=== PATIENT | female | born 1965 | race Caucasian/White ===

== ENCOUNTER 2018-02-17 21:55 | Inpatient (IN) | payer OTHER ==
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
[2018-02-17] MEDS ORDERED: P-EPHED 60MG/TRIPROLIDI 2.5MG TABLET PO PRN (22:45)
[2018-02-17] MEDS ORDERED: guaiFENesin/D-METHORPHAN HB 10 ML UNIT-DOSE CUPS PO PRN (22:45)
[2018-02-17] MEDS ORDERED: chlordiazePOXIDE HCL 25 MG CAPSULE PO ONE ×2 (22:45→23:30)
[2018-02-17] MEDS ORDERED: chlordiazePOXIDE HCL 25 MG CAPSULE PO PRN (22:45)
[2018-02-17] MEDS ORDERED: ACETAMINOPHEN 325 MG TABLET (FP) PO PRN (22:45)
[2018-02-17] MEDS ORDERED: MAGNESIUM CITRATE 300 ML BOTTLE PO PRN (22:45)
[2018-02-17] MEDS ORDERED: IBUPROFEN 400 MG TABLET (FP) PO PRN (22:45)
[2018-02-17] MEDS ORDERED: LOPERAMIDE HCL 2 MG CAPSULE PO PRN (22:45)
[2018-02-17] MEDS ORDERED: MENTHOL/PHENOL 1 EACH UD MM PRN (22:45)
[2018-02-17] MEDS ORDERED: MAGNESIUM HYDROX 2400MG/30ML ORAL SUSPENSION 30 ML CUP PO PRN (22:45)
[2018-02-17] MEDS ORDERED: NICOTINE POLACRILEX 2 MG GUM BC PRN (22:45)
[2018-02-17] MEDS ORDERED: MAG HYDROX/AL HYDROX/SIMETH 30 ML UNIT-DOSE CUP PO PRN (22:45)
[2018-02-17 22:47] VITALS: BMI 29.5
[2018-02-18] MEDS ORDERED: chlordiazePOXIDE HCL 25 MG CAPSULE PO PRN (00:41)
[2018-02-18] MEDS: chlordiazePOXIDE HCL 25 MG CAPSULE PO SCH ×16 (01:36→22:17)
[2018-02-18] MEDS ORDERED: chlordiazePOXIDE HCL 25 MG CAPSULE PO SCH (05:00)
--- NOTE | 2018-02-18 08:06 | CONSULT ---
[facility] Psychiatric Consult - Data Date of interview: 02/18/18 Admission source: [facility] Identifying data: This is 52 years old female, single, homeless, on PA, with history of Bipolar Disorder, history of opsychiatric hospitalizations, with history of of Crack, Alcohol, Nicotine dependence, is here reportinf Alcohol withdrawal symptoms and seeking for detox. Substance Abuse History: Smoking history: Current every day smoker. Have you smoked in the past 12 months: Yes. Aproximately how many cigarettes per day: 20. Hx Chewing Tobacco Use: No. Initiated information on smoking cessation: Yes. 'Breaking Loose' booklet given: 02/17/18. - Substance & Tx. History. Hx Alcohol Use: Yes. Substance Use Type: Alcohol, Cocaine. Hx Substance Use Treatment: Yes ([facility] 2010). - Substances Abused. Alcohol. Route: Oral. Frequency: Daily. Amount used: LIQUIOR 1 pint + 4 beers x 24 oz. Age of first use: 16. Date of Last Use: 02/17/18. Crack. Route: Smoking. Frequency: Daily. Amount used: $50. Age of first use: 18. Date of Last Use: 02/17/18 Medical History: Asthma, LBP Psychiatric History: Patient reports to carry Bipolar Disorder with most recent psychiatric hospitalization on [id number] at [facility] for safety, denies suicidal, homiicidal history, reports taking prior to admission: Abilify 15mg poqd,. Cogentin 2mg poqd Physical/Sexual Abuse/Trauma History: Denies Additional Comment: Abilify 15mg poqd,. Cogentin 2mg poqd Mental Status Exam - Mental Status Exam Alert and Oriented to: Person Cognitive Function: Fair Patient Appearance: Unkempt Mood: Sad Affect: Mood Congruent Patient Behavior: Cooperative Speech Pattern: Delayed Voice Loudness: Mildly Soft/Quiet Thought Process: Circumstantial Thought Disorder: Being Controlled Hallucinations: Denies Suicidal Ideation: Denies Homicidal Ideation: Denies Insight/Judgement: Fair Sleep: Difficulty falling asleep Appetite: Fair Muscle strength/Tone: Mild Hypotonicity Gait/Station: Shuffling Additional Comments: Abilify 15mg poqd,. Cogentin 2mg poqd Psychiatric Findings - Problem List ([place] 1, 2,3) (1) Cocaine dependence Current Visit: Yes Status: Acute Qualifiers: Substance use status: uncomplicated Qualified Code(s): F14.20 - Cocaine dependence, uncomplicated (2) Nicotine dependence Current Visit: Yes Status: Acute Qualifiers: Nicotine product type: cigarettes (3) Cocaine dependence Current Visit: Yes Status: Acute (4) Alcohol dependence Current Visit: Yes Status: Acute (5) Bipolar disorder Current Visit: Yes Status: Acute (6) Drug-induced mood disorder Current Visit: Yes Status: Acute - Initial Treatment Plan Initial Treatment Plan: Abilify 15mg poqd,. Cogentin 2mg poqd
[2018-02-18 10:09] LABS: HEMATOCRIT 42.7 % (32.4-45.2); HEMOGLOBIN 14.6 GM/dL (10.7-15.3); MCH 31.7 pg (25.7-33.7); MCHC 34.2 g/dl (32.0-36.0); MEAN CELL VOLUME 92.9 fl (80-96); MEAN PLT VOLUME 9.3 fl (7.5-11.1); PLATELET COUNT 247 K/MM3 (134-434); RDW 13.5 % (11.6-15.6); WHITE BLOOD COUNT 6.8 K/mm3 (4.0-10.0)
[2018-02-18 10:10] LABS: CHLORIDE 108 mmol/L (98-107); POTASSIUM 4.1 mmol/L (3.5-5.1); SODIUM 143 mmol/L (136-145)
[2018-02-18] MEDS: ARIPiprazole 15 MG TABLET PO SCH (10:31)
[2018-02-18] MEDS: BENZTROPINE MESYLATE 1 MG TABLET (FP) PO SCH (10:31)
[2018-02-18] MEDS: PRENATAL VITAMINS W/ FOLIC ACID TABLET (FP) PO SCH (10:32)
[2018-02-18] MEDS: NICOTINE 14 MG/24 HOURS TOPICAL PATCH TD SCH (10:33)
[2018-02-18 10:41] LABS: ALBUMIN 3.5 g/dl (3.4-5.0); ALK PHOS 79 U/L (45-117); ANION GAP 7 (8-16); BILIRUBIN,TOTAL 0.5 mg/dL (0.2-1.0); BLOOD UREA NITROGEN 12 mg/dL (7-18); CO2 28 mmol/L (21-32); CREATININE 0.9 mg/dL (0.55-1.02); GLUCOSE,RANDOM 89 mg/dL (74-106); SGOT/AST 17 U/L (15-37); SGPT/ALT 19 U/L (12-78); TOT PROT 6.4 g/dl (6.4-8.2)
--- NOTE | 2018-02-18 10:43 | PN ---
S CIWA - CIWA Score Nausea/Vomitin-Mild Nausea/No Vomiting Muscle Tremors: 4-Moderate,w/Arms Extend Anxiety: 3 Agitation: 3 Paroxysmal Sweats: 1-Minimal Palms Moist Orientation: 0-Oriented Tacttile Disturbances: 0-None Auditory Disturbances: 0-None Visual Disturbances: 0-None Headache: 0-None Present CIWA-Ar Total Score: 12 BHS Progress Note (SOAP) Subjective: tremor trouble sleep at night sweat restlessness Objective: 02/18/18 10:43 Vital Signs Temperature 98.2 F 02/18/18 09:07 Pulse Rate 80 02/18/18 09:07 Respiratory Rate 16 02/18/18 09:07 Blood Pressure 108/62 02/18/18 09:07 O2 Sat by Pulse Oximetry (%) Laboratory Last Values WBC 6.8 K/mm3 (4.0-10.0) 02/18/18 07:30 RBC 4.60 M/mm3 (3.60-5.2) 02/18/18 07:30 Hgb 14.6 GM/dL (10.7-15.3) 02/18/18 07:30 Hct 42.7 % (32.4-45.2) 02/18/18 07:30 MCV 92.9 fl (80-96) 02/18/18 07:30 MCH 31.7 pg (25.7-33.7) 02/18/18 07:30 MCHC 34.2 g/dl (32.0-36.0) 02/18/18 07:30 RDW 13.5 % (11.6-15.6) 02/18/18 07:30 Plt Count 247 K/MM3 (134-434) 02/18/18 07:30 MPV 9.3 fl (7.5-11.1) 02/18/18 07:30 Sodium 143 mmol/L (136-145) 02/18/18 07:30 Potassium 4.1 mmol/L (3.5-5.1) 02/18/18 07:30 Chloride 108 mmol/L (98-107) H 02/18/18 07:30 lab noted Assessment: 02/18/18 10:44 withdrawal sx Plan: continue detox
--- NOTE | 2018-02-18 10:47 | EKG ---
Test Reason : Blood Pressure : / mmHG Vent. Rate : 083 BPM Atrial Rate : 083 BPM P-R Int : 120 ms QRS Dur : 074 ms QT Int : 390 ms P-R-T Axes : 072 076 054 degrees QTc Int : 458 ms NORMAL SINUS RHYTHM NORMAL ECG NO PREVIOUS ECGS AVAILABLE Confirmed by NETTE PAULINO, KARIN ([id number]) on 02/18/2018 10:46:31 AM Referred By: Confirmed By:KARIN PERDUE MD
[2018-02-18] MEDS: ARTIFICIAL TEARS (POLYVINYL ALCOHOL 1.4%) OPTH DROPS OS SCH ×2 (17:08→22:17)
[2018-02-18] MEDS: hydrOXYzine PAMOATE 50 MG CAPSULE (FP) PO PRN (18:09)
--- NOTE | 2018-02-18 18:21 | PN ---
[facility] Progress Note Note: Psychiatry Attending's note : Called to evaluate this patient.Issue : crisis intervention. Lab results in : patient is positive for HIV.Met with Ms Heart. She admits to being " surprised and saddened " by the news. Patient remains calm.Able to discuss the situation in clear terms. She understands the seriousness of her new condition.Aware of improvement of prognosis. She is reassured by the general knowledge that efficacious treatment strategies are now available. Continues to be future-oriented.Willing to address this new challenge with sadaf and courage. States that she will follow treatment guidelines to maintain health.Receptive to support and education. Mental status is stable.Ms Heart exhibits adequate control and remarkable strength in the face of this adversity. She indicates that she is motivated for the completion of detoxification treatment and the maintenance of sobriety. Patient is NOT a danger to self or others.Psychiatry-Liaison remains available for continuous support and guidance.
[2018-02-18] MEDS: THIAMINE HCL 100 MG TABLET (FP) PO SCH (22:18)
[2018-02-18] MEDS: MELATONIN 5 MG TABLETS PO PRN (22:18)
[2018-02-19] MEDS ORDERED: chlordiazePOXIDE 5 MG CAPSULE PO SCH (05:00)
[2018-02-19] MEDS: chlordiazePOXIDE HCL 25 MG CAPSULE PO SCH ×4 (06:25→22:18)
--- NOTE | 2018-02-19 09:57 | PN ---
S CIWA - CIWA Score Nausea/Vomitin-No Nausea/No Vomiting Muscle Tremors: 3 Anxiety: 3 Agitation: 2 Paroxysmal Sweats: 1-Minimal Palms Moist Orientation: 0-Oriented Tacttile Disturbances: 1-Very Mild Itch/Numbness Auditory Disturbances: 0-None Visual Disturbances: 0-None Headache: 1-Very Mild CIWA-Ar Total Score: 11 S Progress Note (SOAP) Subjective: sweat tremor restlessness irritable informed negative second hiv test result team of HIV specialist counselor medical provider and nurse will meet with the patient later today discuss sexual trasmitted disease prevention Objective: 02/19/18 09:57 Vital Signs Temperature 96.8 F L 02/19/18 09:34 Pulse Rate 75 02/19/18 09:34 Respiratory Rate 16 02/19/18 09:34 Blood Pressure 110/60 02/19/18 09:34 O2 Sat by Pulse Oximetry (%) Laboratory Last Values WBC 6.8 K/mm3 (4.0-10.0) 02/18/18 07:30 RBC 4.60 M/mm3 (3.60-5.2) 02/18/18 07:30 Hgb 14.6 GM/dL (10.7-15.3) 02/18/18 07:30 Hct 42.7 % (32.4-45.2) 02/18/18 07:30 MCV 92.9 fl (80-96) 02/18/18 07:30 MCH 31.7 pg (25.7-33.7) 02/18/18 07:30 MCHC 34.2 g/dl (32.0-36.0) 02/18/18 07:30 RDW 13.5 % (11.6-15.6) 02/18/18 07:30 Plt Count 247 K/MM3 (134-434) 02/18/18 07:30 MPV 9.3 fl (7.5-11.1) 02/18/18 07:30 Sodium 143 mmol/L (136-145) 02/18/18 07:30 Potassium 4.1 mmol/L (3.5-5.1) 02/18/18 07:30 Chloride 108 mmol/L (98-107) H 02/18/18 07:30 Carbon Dioxide 28 mmol/L (21-32) 02/18/18 07:30 Anion Gap 7 (8-16) L 02/18/18 07:30 BUN 12 mg/dL (7-18) 02/18/18 07:30 Creatinine 0.9 mg/dL (0.55-1.02) 02/18/18 07:30 Creat Clearance w eGFR > 60 (>60) 02/18/18 07:30 Random Glucose 89 mg/dL (74-106) 02/18/18 07:30 Calcium 9.0 mg/dL (8.5-10.1) 02/18/18 07:30 Total Bilirubin 0.5 mg/dL (0.2-1.0) 02/18/18 07:30 AST 17 U/L (15-37) 02/18/18 07:30 ALT 19 U/L (12-78) 02/18/18 07:30 Alkaline Phosphatase 79 U/L (45-117) 02/18/18 07:30 Total Protein 6.4 g/dl (6.4-8.2) 02/18/18 07:30 Albumin 3.5 g/dl (3.4-5.0) 02/18/18 07:30 HIV 1&2 Ag/Ab, 4th Gen Non reactive (Non Reactive) 02/18/18 07:30 HIV Note 02/18/18 07:30 HIV 1&2 Antibody Screen Preliminary positive 02/18/18 07:30 HIV P24 Antigen Negative 02/18/18 07:30 lab noted patient informed Assessment: 02/19/18 09:57 withdrawal sx Plan: continue detox safe sex
[2018-02-19] MEDS: PRENATAL VITAMINS W/ FOLIC ACID TABLET (FP) PO SCH (10:29)
[2018-02-19] MEDS: NICOTINE 14 MG/24 HOURS TOPICAL PATCH TD SCH (10:29)
[2018-02-19] MEDS: ARTIFICIAL TEARS (POLYVINYL ALCOHOL 1.4%) OPTH DROPS OS SCH ×2 (10:29→14:03)
[2018-02-19] MEDS: BENZTROPINE MESYLATE 1 MG TABLET (FP) PO SCH (10:29)
[2018-02-19] MEDS: ARIPiprazole 15 MG TABLET PO SCH (10:29)
[2018-02-19 15:28] LABS: URINE APPEARANCE CLEAR; URINE BILIRUBIN NEGATIVE (<2.0 mg/dL); URINE COLOR YELLOW; URINE GLUCOSE (UA) NEGATIVE (NEGATIVE); URINE KETONE NEGATIVE (NEGATIVE); URINE LEUK ESTERASE NEGATIVE (NEGATIVE); URINE NITRITE NEGATIVE (NEGATIVE); URINE PROTEIN NEGATIVE (NEGATIVE); URINE UROBILINOGEN NEGATIVE mg/dL (0.2-1.0)
[2018-02-19] MEDS: TOBRAMYCIN 0.3% OPHTH SOLN 5 ML BOTTLE OS SCH ×2 (17:38→22:18)
[2018-02-19] MEDS ORDERED: TOBRAMYCIN 0.3% OPHTH SOLN 5 ML BOTTLE OS SCH (22:00)
[2018-02-19] MEDS: THIAMINE HCL 100 MG TABLET (FP) PO SCH (22:17)
[2018-02-19] MEDS: MELATONIN 5 MG TABLETS PO PRN (22:18)
[2018-02-20] MEDS ORDERED: chlordiazePOXIDE HCL 10 MG CAPSULE PO SCH (05:00)
[2018-02-20] MEDS: chlordiazePOXIDE 5 MG CAPSULE PO SCH ×4 (05:53→22:20)
--- NOTE | 2018-02-20 09:13 | PN ---
S Progress Note (SOAP) Subjective: interrupted sleep, sweats, tired Objective: 02/20/18 09:11 Vital Signs Temperature 96.6 F L 02/20/18 06:26 Pulse Rate 72 02/20/18 06:30 Respiratory Rate 18 02/20/18 06:30 Blood Pressure 147/90 02/20/18 06:26 O2 Sat by Pulse Oximetry (%) Laboratory Tests 02/18/18 02/18/18 02/18/18 07:30 07:30 07:30 WBC 6.8 RBC 4.60 Hgb 14.6 Hct 42.7 MCV 92.9 MCH 31.7 MCHC 34.2 RDW 13.5 Plt Count 247 MPV 9.3 Sodium 143 Potassium 4.1 Chloride 108 H Carbon Dioxide 28 Anion Gap 7 L BUN 12 Creatinine 0.9 Creat Clearance w eGFR > 60 Random Glucose 89 Calcium 9.0 Total Bilirubin 0.5 AST 17 ALT 19 Alkaline Phosphatase 79 Total Protein 6.4 Albumin 3.5 Urine Color Urine Appearance Urine pH Ur Specific [place] Urine Protein Urine Glucose (UA) Urine Ketones Urine Blood Urine Nitrite Urine Bilirubin Urine Urobilinogen Ur Leukocyte Esterase RPR Titer HIV 1&2 Ag/Ab, 4th Gen HIV Note HIV 1&2 Antibody Screen Preliminary positive HIV P24 Antigen Negative 02/18/18 02/18/18 02/18/18 07:30 07:30 10:50 WBC RBC Hgb Hct MCV MCH MCHC RDW Plt Count MPV Sodium Potassium Chloride Carbon Dioxide Anion Gap BUN Creatinine Creat Clearance w eGFR Random Glucose Calcium Total Bilirubin AST ALT Alkaline Phosphatase Total Protein Albumin Urine Color Yellow Urine Appearance Clear Urine pH 6.0 Ur Specific [place] 1.015 Urine Protein Negative Urine Glucose (UA) Negative Urine Ketones Negative Urine Blood Negative Urine Nitrite Negative Urine Bilirubin Negative Urine Urobilinogen Negative Ur Leukocyte Esterase Negative RPR Titer Nonreactive HIV 1&2 Ag/Ab, 4th Gen Non reactive HIV Note HIV 1&2 Antibody Screen HIV P24 Antigen pt aox3 lying in bed in nad cooperative Assessment: 02/20/18 09:12 withdrawal sx's Plan: cont present detox increase fluids d/c in am
[2018-02-20] MEDS: ARIPiprazole 15 MG TABLET PO SCH (10:16)
[2018-02-20] MEDS: PRENATAL VITAMINS W/ FOLIC ACID TABLET (FP) PO SCH (10:16)
[2018-02-20] MEDS: BENZTROPINE MESYLATE 1 MG TABLET (FP) PO SCH (10:16)
[2018-02-20] MEDS: NICOTINE 14 MG/24 HOURS TOPICAL PATCH TD SCH (10:17)
[2018-02-20] MEDS: ARTIFICIAL TEARS (POLYVINYL ALCOHOL 1.4%) OPTH DROPS OS SCH (10:18)
[2018-02-20] MEDS: TOBRAMYCIN 0.3% OPHTH SOLN 5 ML BOTTLE OS SCH ×3 (12:29→22:19)
[2018-02-20] MEDS: hydrOXYzine PAMOATE 50 MG CAPSULE (FP) PO PRN (19:23)
[2018-02-20] MEDS: THIAMINE HCL 100 MG TABLET (FP) PO SCH (22:20)
[2018-02-20] MEDS: MELATONIN 5 MG TABLETS PO PRN (22:20)
[2018-02-21] MEDS: chlordiazePOXIDE HCL 10 MG CAPSULE PO SCH ×2 (06:07→10:38)
--- NOTE | 2018-02-21 09:12 | PN ---
S Progress Note (SOAP) Subjective: alert,no complaint Objective: 02/21/18 09:10 Vital Signs Temperature 96.8 F L 02/21/18 07:43 Pulse Rate 67 02/21/18 07:43 Respiratory Rate 16 02/21/18 07:43 Blood Pressure 109/74 02/21/18 07:43 O2 Sat by Pulse Oximetry (%) Assessment: 02/21/18 09:10 detox completed,no withdrawal symptom Plan: discharge today,follow up [facility] as arrangement
--- NOTE | 2018-02-21 09:36 | DS ---
[facility] Detox Discharge Summary Admission Date: 02/17/18 Discharge Date: 02/21/18 - History Present History: Alcohol Dependence, Cocaine Dependence Additional Comments: follow up with [facility] as arrangement Pertinent Past History: nicotine dependence bipolar disorder - Physical Exam Results Vital Signs: Vital Signs Temperature 96.8 F L 02/21/18 07:43 Pulse Rate 67 02/21/18 07:43 Respiratory Rate 16 02/21/18 07:43 Blood Pressure 109/74 02/21/18 07:43 O2 Sat by Pulse Oximetry (%) Pertinent Admission Physical Exam Findings: withdrawal symptom Vital Signs Temperature 96.8 F L 02/21/18 07:43 Pulse Rate 67 02/21/18 07:43 Respiratory Rate 16 02/21/18 07:43 Blood Pressure 109/74 02/21/18 07:43 O2 Sat by Pulse Oximetry (%) Laboratory Last Values WBC 6.8 K/mm3 (4.0-10.0) 02/18/18 07:30 RBC 4.60 M/mm3 (3.60-5.2) 02/18/18 07:30 Hgb 14.6 GM/dL (10.7-15.3) 02/18/18 07:30 Hct 42.7 % (32.4-45.2) 02/18/18 07:30 MCV 92.9 fl (80-96) 02/18/18 07:30 MCH 31.7 pg (25.7-33.7) 02/18/18 07:30 MCHC 34.2 g/dl (32.0-36.0) 02/18/18 07:30 RDW 13.5 % (11.6-15.6) 02/18/18 07:30 Plt Count 247 K/MM3 (134-434) 02/18/18 07:30 MPV 9.3 fl (7.5-11.1) 02/18/18 07:30 Sodium 143 mmol/L (136-145) 02/18/18 07:30 Potassium 4.1 mmol/L (3.5-5.1) 02/18/18 07:30 Chloride 108 mmol/L (98-107) H 02/18/18 07:30 Carbon Dioxide 28 mmol/L (21-32) 02/18/18 07:30 Anion Gap 7 (8-16) L 02/18/18 07:30 BUN 12 mg/dL (7-18) 02/18/18 07:30 Creatinine 0.9 mg/dL (0.55-1.02) 02/18/18 07:30 Creat Clearance w eGFR > 60 (>60) 02/18/18 07:30 Random Glucose 89 mg/dL (74-106) 02/18/18 07:30 Calcium 9.0 mg/dL (8.5-10.1) 02/18/18 07:30 Total Bilirubin 0.5 mg/dL (0.2-1.0) 02/18/18 07:30 AST 17 U/L (15-37) 02/18/18 07:30 ALT 19 U/L (12-78) 02/18/18 07:30 Alkaline Phosphatase 79 U/L (45-117) 02/18/18 07:30 Total Protein 6.4 g/dl (6.4-8.2) 02/18/18 07:30 Albumin 3.5 g/dl (3.4-5.0) 02/18/18 07:30 Urine Color Yellow 02/18/18 10:50 Urine Appearance Clear 02/18/18 10:50 Urine pH 6.0 (5.0-8.0) 02/18/18 10:50 Ur Specific [place] 1.015 (1.001-1.035) 02/18/18 10:50 Urine Protein Negative (NEGATIVE) 02/18/18 10:50 Urine Glucose (UA) Negative (NEGATIVE) 02/18/18 10:50 Urine Ketones Negative (NEGATIVE) 02/18/18 10:50 Urine Blood Negative (NEGATIVE) 02/18/18 10:50 Urine Nitrite Negative (NEGATIVE) 02/18/18 10:50 Urine Bilirubin Negative (<2.0 mg/dL) 02/18/18 10:50 Urine Urobilinogen Negative mg/dL (0.2-1.0) 02/18/18 10:50 Ur Leukocyte Esterase Negative (NEGATIVE) 02/18/18 10:50 RPR Titer Nonreactive (NONREACTIVE) 02/18/18 07:30 HIV 1&2 Ag/Ab, 4th Gen Non reactive (Non Reactive) 02/18/18 07:30 HIV Note 02/18/18 07:30 HIV 1&2 Antibody Screen Preliminary positive 02/18/18 07:30 HIV P24 Antigen Negative 02/18/18 07:30 - Treatment Hospital Course: Detox Protocol Followed, Detoxed Safely, Responded well, Discharged Condition Good, Rehab Referral Accepted Patient has Accepted a [facility] Referral [facility]: [facility] - Medication Discharge Medications: Ambulatory Orders Aripiprazole [Abilify -] 15 mg PO DAILY #30 tablet 02/18/18 Benztropine Mesylate [Cogentin -] 2 mg PO DAILY #30 tablet 02/18/18 Tobramycin 0.3% Ophth Soln [Tobrex Ophthalmic Solution -] 1 drop OS TID drops 02/20/18 - Diagnosis (1) Withdrawal symptoms, alcohol Current Visit: Yes Status: Acute Qualifiers: Complication of substance-induced condition: uncomplicated Qualified Code(s ): F10.230 - Alcohol dependence with withdrawal, uncomplicated (2) Asthma Current Visit: Yes Status: Chronic Qualifiers: Asthma severity: unspecified severity Asthma persistence: unspecified Asthma complication type: unspecified Qualified Code(s): J45.909 - Unspecified asthma, uncomplicated (3) Bipolar disorder Current Visit: Yes Status: Chronic (4) Cocaine dependence Current Visit: Yes Status: Chronic (5) Nicotine dependence Current Visit: Yes Status: Chronic Qualifiers: Nicotine product type: cigarettes - AMA Did Patient Leave Against Medical Advice: No
[2018-02-21 10:07] VITALS: BP 118/73; PULSE 74; TEMP 97.5
[2018-02-21] MEDS: PRENATAL VITAMINS W/ FOLIC ACID TABLET (FP) PO SCH (10:37)
[2018-02-21] MEDS: ARTIFICIAL TEARS (POLYVINYL ALCOHOL 1.4%) OPTH DROPS OS SCH (10:38)
[2018-02-21] MEDS: BENZTROPINE MESYLATE 1 MG TABLET (FP) PO SCH (10:38)
[2018-02-21] MEDS: NICOTINE 14 MG/24 HOURS TOPICAL PATCH TD SCH (10:38)
[2018-02-21] MEDS: ARIPiprazole 15 MG TABLET PO SCH (10:38)
[2018-02-21] MEDS: TOBRAMYCIN 0.3% OPHTH SOLN 5 ML BOTTLE OS SCH (13:05)
== END 2018-02-21 13:02 | disposition other institution (70) | DRG 897 ==
LOC: YASAS 21:55 → Y6N 23:07
PROVIDERS: ADMIT Surgery; ATTEND Surgery
PROC: HZ2ZZZZ Detoxification Services for Substance Abuse Treatment (ICD-10-PCS; principal; 2018-02-17)
DX: F10.230 Alcohol dependence with withdrawal, uncomplicated (principal); F14.20 Cocaine dependence, uncomplicated; F17.210 Nicotine dependence, cigarettes, uncomplicated; F31.9 Bipolar disorder, unspecified; F19.24 Other psychoactive substance dependence with psychoactive substance-induced mood disorder; J45.909 Unspecified asthma, uncomplicated; M54.5 Low back pain; Z87.42 Personal history of other diseases of the female genital tract
CPT/HCPCS: 36415; 80053; 81003; 85027; 86593; 87389; 93005; 93010

== ENCOUNTER 2018-02-21 14:14 | Inpatient (IN) | payer OTHER ==
[2018-02-21] MEDS ORDERED: MAGNESIUM HYDROX 2400MG/30ML ORAL SUSPENSION 30 ML CUP PO PRN (16:59)
[2018-02-21] MEDS ORDERED: MENTHOL/PHENOL 1 EACH UD MM PRN (16:59)
[2018-02-21] MEDS ORDERED: LOPERAMIDE HCL 2 MG CAPSULE PO PRN (16:59)
[2018-02-21] MEDS ORDERED: MAG HYDROX/AL HYDROX/SIMETH 30 ML UNIT-DOSE CUP PO PRN (16:59)
[2018-02-21] MEDS ORDERED: P-EPHED 60MG/TRIPROLIDI 2.5MG TABLET PO PRN (16:59)
[2018-02-21] MEDS ORDERED: ACETAMINOPHEN 325 MG TABLET (FP) PO PRN (16:59)
[2018-02-21] MEDS ORDERED: MAGNESIUM CITRATE 300 ML BOTTLE PO PRN (16:59)
[2018-02-21] MEDS ORDERED: guaiFENesin/D-METHORPHAN HB 10 ML UNIT-DOSE CUPS PO PRN (16:59)
[2018-02-21] MEDS ORDERED: IBUPROFEN 400 MG TABLET (FP) PO PRN (16:59)
--- NOTE | 2018-02-21 16:59 | HP ---
[facility] Rehab Assess/Revision - Admission History Admitted to Rehab from: [facility] [place] Date of Admission to Rehab: 02/21/18 - Findings Detox History & Physical reviewed: Yes Concur with findings: Yes Comments/Additional Findings: for rehab as protocol Inpatient Rehab Admission - Initial Determination Are CD services needed?: Yes Free of communicable disease: Yes Not in need of hospitalization: Yes - Rehab Admission Criteria Previous failed treatment: Yes Poor recovery environment: Yes Comorbidities: Yes Lacks judgement: No Patient is meeting Inpatient Rehab admission criteria:: Yes
[2018-02-21] MEDS ORDERED: PT OWN MED DRAWER 7, Y5N ONE (20:33)
[2018-02-21] MEDS: TOBRAMYCIN 0.3% OPHTH SOLN 5 ML BOTTLE OS SCH (21:13)
[2018-02-21] MEDS: THIAMINE HCL 100 MG TABLET (FP) PO SCH (21:14)
[2018-02-21] MEDS ORDERED: BENZTROPINE MESYLATE 2 MG TABLET PO SCH (22:00)
[2018-02-21] MEDS: ARIPiprazole 15 MG TABLET PO SCH (22:25)
[2018-02-22] MEDS: TOBRAMYCIN 0.3% OPHTH SOLN 5 ML BOTTLE OS SCH ×3 (06:19→22:11)
[2018-02-22] MEDS: BENZTROPINE MESYLATE 1 MG TABLET (FP) PO SCH (10:19)
[2018-02-22] MEDS: ARIPiprazole 15 MG TABLET PO SCH (10:19)
[2018-02-22] MEDS: PRENATAL VITAMINS W/ FOLIC ACID TABLET (FP) PO SCH (10:19)
[2018-02-22] MEDS: THIAMINE HCL 100 MG TABLET (FP) PO SCH (22:11)
[2018-02-23] MEDS: TOBRAMYCIN 0.3% OPHTH SOLN 5 ML BOTTLE OS SCH ×3 (07:21→21:44)
[2018-02-23] MEDS: BENZTROPINE MESYLATE 1 MG TABLET (FP) PO SCH (09:36)
[2018-02-23] MEDS: PRENATAL VITAMINS W/ FOLIC ACID TABLET (FP) PO SCH (09:36)
[2018-02-23] MEDS: ARIPiprazole 15 MG TABLET PO SCH (09:36)
[2018-02-23] MEDS: MELATONIN 5 MG TABLETS PO PRN (21:44)
[2018-02-23] MEDS: THIAMINE HCL 100 MG TABLET (FP) PO SCH (21:44)
[2018-02-24] MEDS: TOBRAMYCIN 0.3% OPHTH SOLN 5 ML BOTTLE OS SCH ×3 (06:17→21:20)
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
[2018-02-24] MEDS: PRENATAL VITAMINS W/ FOLIC ACID TABLET (FP) PO SCH (10:14)
[2018-02-24] MEDS: ARIPiprazole 15 MG TABLET PO SCH (10:14)
[2018-02-24] MEDS: BENZTROPINE MESYLATE 1 MG TABLET (FP) PO SCH (10:14)
[2018-02-24] MEDS ORDERED: ARIPiprazole 15 MG TABLET PO SCH (10:15)
[2018-02-24] MEDS ORDERED: BENZTROPINE MESYLATE 1 MG TABLET (FP) PO SCH (10:15)
--- NOTE | 2018-02-24 16:25 | PN ---
[facility] Progress Note Note: Vital Signs Temperature 97.9 F 02/24/18 06:48 Pulse Rate 74 02/24/18 06:48 Respiratory Rate 18 02/24/18 06:48 Blood Pressure 114/76 02/24/18 06:48 O2 Sat by Pulse Oximetry (%) Laboratory Last Values HIV 1&2 Antibody Screen Preliminary positive 02/24/18 08:30 HIV P24 Antigen Negative 02/24/18 08:30 Patient has a follow up appt at the [facility] on 03/03/18. Viral load ordered. Discussed with patient. Patient in no distress, verbalizes understanding. continue rehab tx continue to monitor
[2018-02-24] MEDS: MELATONIN 5 MG TABLETS PO PRN (21:19)
[2018-02-24] MEDS: THIAMINE HCL 100 MG TABLET (FP) PO SCH (21:19)
[2018-02-25] MEDS: TOBRAMYCIN 0.3% OPHTH SOLN 5 ML BOTTLE OS SCH ×3 (06:21→21:18)
[2018-02-25] MEDS: BENZTROPINE MESYLATE 1 MG TABLET (FP) PO SCH (09:56)
[2018-02-25] MEDS: ARIPiprazole 15 MG TABLET PO SCH (09:56)
[2018-02-25] MEDS: PRENATAL VITAMINS W/ FOLIC ACID TABLET (FP) PO SCH (09:56)
[2018-02-25] MEDS ORDERED: PT OWN MED DRAWER 7, Y5N ONE ×2 (14:10→19:49)
[2018-02-25] MEDS: THIAMINE HCL 100 MG TABLET (FP) PO SCH (21:17)
[2018-02-25] MEDS: MELATONIN 5 MG TABLETS PO PRN (21:17)
[2018-02-26] MEDS: TOBRAMYCIN 0.3% OPHTH SOLN 5 ML BOTTLE OS SCH ×3 (06:26→21:23)
[2018-02-26] MEDS: PRENATAL VITAMINS W/ FOLIC ACID TABLET (FP) PO SCH (10:15)
[2018-02-26] MEDS: BENZTROPINE MESYLATE 1 MG TABLET (FP) PO SCH (10:16)
[2018-02-26] MEDS: ARIPiprazole 15 MG TABLET PO SCH (10:16)
[2018-02-26] MEDS ORDERED: NICOTINE POLACRILEX 2 MG GUM BUC PRN (16:37)
[2018-02-26] MEDS: THIAMINE HCL 100 MG TABLET (FP) PO SCH (21:21)
[2018-02-26] MEDS: MELATONIN 5 MG TABLETS PO PRN (21:21)
[2018-02-27] MEDS: TOBRAMYCIN 0.3% OPHTH SOLN 5 ML BOTTLE OS SCH ×3 (06:28→21:38)
[2018-02-27] MEDS: ARIPiprazole 15 MG TABLET PO SCH (09:57)
[2018-02-27] MEDS: BENZTROPINE MESYLATE 1 MG TABLET (FP) PO SCH (09:58)
[2018-02-27] MEDS: PRENATAL VITAMINS W/ FOLIC ACID TABLET (FP) PO SCH (09:58)
[2018-02-27] MEDS ORDERED: NICOTINE 21 MG/24 HOURS TOPICAL PATCH TD SCH (10:00)
[2018-02-27] MEDS: THIAMINE HCL 100 MG TABLET (FP) PO SCH (21:37)
[2018-02-27] MEDS: MELATONIN 5 MG TABLETS PO PRN (21:37)
[2018-02-28] MEDS: TOBRAMYCIN 0.3% OPHTH SOLN 5 ML BOTTLE OS SCH ×3 (06:18→21:19)
[2018-02-28] MEDS: PRENATAL VITAMINS W/ FOLIC ACID TABLET (FP) PO SCH (09:42)
[2018-02-28] MEDS: ARIPiprazole 15 MG TABLET PO SCH (09:42)
[2018-02-28] MEDS: BENZTROPINE MESYLATE 1 MG TABLET (FP) PO SCH (09:42)
[2018-02-28] MEDS: NICOTINE 14 MG/24 HOURS TOPICAL PATCH TD SCH (09:42)
[2018-02-28] MEDS: hydrOXYzine PAMOATE 50 MG CAPSULE (FP) PO PRN (18:23)
[2018-02-28] MEDS: THIAMINE HCL 100 MG TABLET (FP) PO SCH (21:18)
[2018-02-28] MEDS: MELATONIN 5 MG TABLETS PO PRN (21:19)
[2018-03-01] MEDS: TOBRAMYCIN 0.3% OPHTH SOLN 5 ML BOTTLE OS SCH ×3 (06:35→21:03)
[2018-03-01] MEDS: BENZTROPINE MESYLATE 1 MG TABLET (FP) PO SCH (09:42)
[2018-03-01] MEDS: NICOTINE 14 MG/24 HOURS TOPICAL PATCH TD SCH (09:42)
[2018-03-01] MEDS: PRENATAL VITAMINS W/ FOLIC ACID TABLET (FP) PO SCH (09:42)
[2018-03-01] MEDS: ARIPiprazole 15 MG TABLET PO SCH (09:42)
[2018-03-01] MEDS: hydrOXYzine PAMOATE 50 MG CAPSULE (FP) PO PRN (15:47)
[2018-03-01] MEDS ORDERED: PT OWN MED DRAWER 7, Y5N ONE ×2 (19:38→22:10)
[2018-03-01] MEDS: THIAMINE HCL 100 MG TABLET (FP) PO SCH (21:03)
[2018-03-01] MEDS: MELATONIN 5 MG TABLETS PO PRN (21:04)
[2018-03-02] MEDS: TOBRAMYCIN 0.3% OPHTH SOLN 5 ML BOTTLE OS SCH (06:43)
[2018-03-02 07:13] VITALS: BP 107/71; PULSE 74; TEMP 98.1
--- NOTE | 2018-03-02 09:01 | PN ---
Psychiatric Progress Note Vital Signs: Vital Signs Period Temp Pulse Resp BP Sys/Johnson Pulse Ox Last 24 Hr 98.1 F 74 18-18 107/71 Date of Session: 03/02/18 Chief Complaint:: Discharge note HPI: Patient addressing Alcohol and Cocaine Dependence comorbid with Nicotine Dependence and Substance-Induced Sleep Disorder ROS: Asthma Current Medications: Active Medications Generic Name Dose Route Start Last Admin Trade Name Freq PRN Reason Stop Dose Admin Acetaminophen 650 mg 02/21/18 16:59 Tylenol - PO Q4H PRN FEVER Al Hydroxide/Mg Hydroxide 30 ml 02/21/18 16:59 Mylanta Oral Suspension - PO Q6H PRN DYSPEPSIA Aripiprazole 15 mg 02/21/18 21:30 03/01/18 09:42 Abilify PO 15 mg DAILY KERRIE Administration Benztropine Mesylate 2 mg 02/22/18 10:00 03/01/18 09:42 Cogentin - PO 2 mg DAILY KERRIE Administration Eucalyptus/Menthol/Phenol/Sorbitol 1 each 02/21/18 16:59 02/26/18 21:22 Cepastat Lozenge - MM 1 each Q4H PRN Administration SORE THROAT Guaifenesin 10 ml 02/21/18 16:59 Robitussin Dm - PO Q6H PRN COUGH Hydroxyzine Pamoate 50 mg 02/21/18 16:59 03/01/18 15:47 Vistaril - PO 50 mg Q4H PRN Administration AGITATION Ibuprofen 400 mg 02/21/18 16:59 Motrin - PO Q6H PRN Pain Level 4-6 Loperamide HCl 4 mg 02/21/18 16:59 Imodium - PO Q6H PRN DIARRHEA Magnesium Citrate 300 ml 02/21/18 16:59 Citroma - PO Q48H PRN CONSTIPATION Magnesium Hydroxide 30 ml 02/21/18 16:59 Milk Of Magnesia - PO DAILY PRN CONSTIPATION Melatonin 5 mg 02/21/18 22:00 03/01/18 21:04 Melatonin PO 5 mg HS PRN Administration INSOMNIA Nicotine 14 mg 02/28/18 10:00 03/01/18 09:42 Nicoderm Patch - TD Not Given DAILY KERRIE Nicotine Polacrilex 2 mg 02/26/18 16:37 02/26/18 17:03 Nicorette Gum - BUC 2 mg Q2H PRN Administration NICOTINE REPLACEMENT RX Multivit/Folic Acid/Iron 1 tab 02/22/18 10:00 03/01/18 09:42 Vitamins (Sjr) - PO 1 tab DAILY KERRIE Administration Pseudoephedrine/Triprolidine 1 combo 02/21/18 16:59 Actifed - PO TID PRN NASAL CONGESTION Thiamine HCl 100 mg 02/21/18 22:00 03/01/18 21:03 Vitamin B1 - PO 100 mg HS KERRIE Administration Tobramycin Sulfate 1 drop 02/21/18 22:00 03/02/18 06:43 Tobrex Ophthalmic Solution - OS 1 drop TID KERRIE Administration Current Side Effect: No Lab tests ordered: Yes Lab tests reviewed: Yes Provider note:: Patient has completed this program today. She has met her treatment goals and will continue to address her issues in outpatient treatment at [facility]. 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 She responded well to Abilify 15 mg po daily and Cogentin 2 mg po daily. Scripts for these medications ae electronically transmitted to [facility] at [address] [place] [address]. She is stable for discharge today Total face to face time:: 35 Mental Status Exam - Mental Status Exam Alert and Oriented to: Time, Place, Person Cognitive Function: Fair Patient Appearance: Well Groomed Mood: Hopeful, Euthymic Affect: Appropriate Patient Behavior: Cooperative Speech Pattern: Clear Voice Loudness: Normal Thought Process: Intact, Goal Oriented Thought Disorder: Not Present Hallucinations: Denies Suicidal Ideation: Denies Homicidal Ideation: Denies Insight/Judgement: Fair Sleep: Fair Appetite: Good Muscle strength/Tone: Normal Gait/Station: Normal Psychiatric Treatment Plan - Problem List (1) Alcohol dependence Current Visit: No (2) Cocaine dependence Current Visit: No (3) Nicotine dependence Current Visit: No Qualifiers: Nicotine product type: cigarettes (4) Bipolar disorder Current Visit: No (5) Substance-induced sleep disorder Current Visit: Yes (6) Asthma Current Visit: No Qualifiers: Asthma severity: unspecified severity Asthma persistence: unspecified Asthma complication type: unspecified Qualified Code(s): J45.909 - Unspecified asthma, uncomplicated Initial treatment plan: Patient is discharged today and referred to [facility] for outpatient treatment
[2018-03-02] MEDS: ARIPiprazole 15 MG TABLET PO SCH (09:04)
[2018-03-02] MEDS: PRENATAL VITAMINS W/ FOLIC ACID TABLET (FP) PO SCH (09:04)
[2018-03-02] MEDS: BENZTROPINE MESYLATE 1 MG TABLET (FP) PO SCH (09:04)
[2018-03-02] MEDS: NICOTINE 14 MG/24 HOURS TOPICAL PATCH TD SCH (09:04)
== END 2018-03-02 09:15 | disposition home or self-care (01) | DRG 895 ==
LOC: YASAS 14:14 → Y3W 14:16
PROVIDERS: ADMIT Psychiatry & Neurology Psychiatry; ATTEND Psychiatry & Neurology Psychiatry
PROC: HZ42ZZZ Group Counseling for Substance Abuse Treatment, Cognitive-Behavioral (ICD-10-PCS; principal; 2018-02-21)
DX: F10.20 Alcohol dependence, uncomplicated (principal); F14.20 Cocaine dependence, uncomplicated; F19.282 Other psychoactive substance dependence with psychoactive substance-induced sleep disorder; F17.210 Nicotine dependence, cigarettes, uncomplicated; F31.9 Bipolar disorder, unspecified; J45.909 Unspecified asthma, uncomplicated; Z87.42 Personal history of other diseases of the female genital tract
CPT/HCPCS: 36415; 86803; 87389; 87536

== ENCOUNTER 2019-09-15 20:09 | Inpatient (IN) | payer OTHER ==
--- NOTE | 2019-09-15 20:25 | HP ---
CIWA Score Nausea/Vomitin-No Nausea/No Vomiting Muscle Tremors: 1-None Visible, but [place] Anxiety: 6 (UNABLE TO SIT STILL. RUSHING PROVIDER TO COMPLETE ASSESSMENT DUE TO FEELING ILL) Agitation: 4-Moderately Restless Paroxysmal Sweats: 4-Forehead w/Sweat Beads Orientation: 2-Disoriented Date<2 days Tacttile Disturbances: 3-Moderate Itch/Numb/Burn (REPORTS PICKING OF THE SKIN) Auditory Disturbances: 0-None Visual Disturbances: 0-None Headache: 0-None Present CIWA-Ar Total Score: 20 - Admission Criteria OASAS Guidelines: Admission for Medically Managed Detox: Requires at least one of the followin. CIWA greater than 12 2. Seizures within the past 24 hours 3. Delirium tremens within the past 24 hours 4. Hallucinations within the past 24 hours 5. Acute intervention needed for co occurring medical disorder 6. Acute intervention needed for co occurring psychiatric disorder 7. Severe withdrawal that cannot be handled at a lower level of care (continued vomiting, continued diarrhea, abnormal vital signs) requiring intravenous medication and/or fluids 8. Patient presents the following: CIWA greater than 12 Admission Criteria Met: Admission criteria met Admitting History and Physical - Smoking History Smoking history: Current every day smoker Have you smoked in the past 12 months: Yes Aproximately how many cigarettes per day: 20 - Alcohol/Substance Use Hx Alcohol Use: Yes Admission ROS [facility] Chief Complaint: C/O WITHDRAWAL SX'S Allergies/Adverse Reactions: Allergies Allergy/AdvReac Type Severity Reaction Status Date / Time No Known Allergies Allergy Verified 02/17/18 22:21 History of Present Illness: SEEKING ALCOHOL DETOX. CLIENT IS SELF REFERRED. KNOWN TO PROGRAM. LAST HERE 2018. REPORTS SOBRIETY OF ABOUT 1 MONTH BEFORE RELAPSING AFTER DC. SHE REPORTS DAILY ALCOHOL INTAKE FOR THE PAST 18 MONTHS. LAST DRINK EARLIER TODAY. PRESENTS NOW W/ CO OF WITHDRAWAL SX'S. C/O RESTLESSNESS, ANXIOUS, IRRITABLE + CIWA CRAVINGS SEEKING TO DRINK MORE ALCOHOL. + EYE CUPOLA TENDER HELPER DUE TO MANAGER FIXED INCOME WITHDRAWAL SX'S, DENIES SZ, BLACKOUTS, AVH, SI. REPORTS CANNABIS, CRACK/ COCAINE. DENIES IVDU,ANY SIGNIFICANT PERIOD OF CLEAN TIME IN THE PAST 12 MONTHS. LIVES ALONE, UNEMPLOYED, DENIES LEGALS. SEEKING HELP SHE IS AFRAID TO . Exam Limitations: No Limitations - Ebola screening Have you traveled outside of the country in the last 21 days: No Have you had contact with anyone from an Ebola affected area: No Have you been sick,other than usual withdrawal symptoms: No Do you have a fever: No - Review of Systems Constitutional: Chills, Night Sweats EENT: reports: Dental Problems (MISSING DENTURES) Respiratory: reports: No Symptoms reported Cardiac: reports: No Symptoms Reported GI: reports: No Symptoms Reported : reports: No Symptoms Reported Musculoskeletal: reports: No Symptoms Reported Integumentary: reports: Sweating Neuro: reports: No Symptoms reported Endocrine: reports: No Symptoms Reported Hematology: reports: No Symptoms Reported Psychiatric: reports: Orientated x3, Agitated (IRRITABLE), Anxious Other Systems: Reviewed and Negative Patient History - Patient Medical History Hx Anemia: No Hx Asthma: Yes Hx Chronic Obstructive Pulmonary Disease (COPD): No Hx Cancer: No Hx Cardiac Disorders: No Hx Congestive Heart Failure: No Hx Hypertension: No Hx Hypercholesterolemia: No Hx Pacemaker: No HX Cerebrovascular Accident: No Hx Seizures: No Hx Dementia: No Hx Diabetes: No Hx Gastrointestinal Disorders: No Hx Liver Disease: No Hx Genitourinary Disorders: No Hx Sexually Transmitted Disorders: No Hx Renal Disease (ESRD): No Hx Thyroid Disease: No Hx Human Immunodeficiency Virus (HIV): No Hx Hepatitis C: No Hx Depression: No Hx Suicide Attempt: No Hx Bipolar Disorder: Yes Hx Schizophrenia: No Other Medical History: DENIES - Patient Surgical History Past Surgical History: No Hx Neurologic Surgery: No Hx Cataract Extraction: No Hx Cardiac Surgery: No Hx Lung Surgery: No Hx Breast Surgery: No Hx Breast Biopsy: No Hx Abdominal Surgery: No Hx Appendectomy: No Hx Cholecystectomy: No Hx Genitourinary Surgery: No Hx Section: No Hx Orthopedic Surgery: No Hx Hysterectomy: No Anesthesia Reaction: No - PPD History Previous Implant?: Yes Documented Results: Negative w/o proof Implanted On Prior R Admission?: No Date: 02/20/18 Results: NO READ PPD to be Administered?: Yes - Reproductive History Patient is a Female of Child Bearing Age (11 -55 yrs old): Yes LMP comment: 2014 Patient : No (NEG CG) - Smoking Cessation Smoking history: Current every day smoker Have you smoked in the past 12 months: Yes Aproximately how many cigarettes per day: 20 Cigars Per Day: 0 Hx Chewing Tobacco Use: No Initiated information on smoking cessation: Yes 'Breaking Loose' booklet given: 09/15/19 - Substance & Tx. History Hx Alcohol Use: Yes Hx Substance Use: Yes Substance Use Type: Alcohol, Cocaine Hx Substance Use Treatment: Yes ([facility]) - Substances abused Alcohol Other (specify): VODKA Substance route: Oral Frequency: Daily Amount used: FIFTH Age of first use: 13 Date of last use: 09/15/19 Cocaine Other (specify): CRACK Substance route: Smoking Frequency: Daily Amount used: $100 Age of first use: 16 Date of last use: 09/14/19 Admission Physical Exam [facility] - Physical General Appearance: Yes: Mild Distress, Sweating (FACE/ HAIR), Anxious HEENTM: Yes: EOMI, Normocephalic, Normal Voice, ISHMAEL, Other (EDENTULOUS DRY MUCUS MEMBRANES) Respiratory: Yes: Chest Non-Tender, Lungs Clear, Normal Breath Sounds, No Respiratory Distress, No Accessory Muscle Use Neck: Yes: No masses,lesions,Nodules, Supple, Trachea in good position Breast: Yes: Breasts Symetrical Cardiology: Yes: Regular Rhythm, Regular Rate, S1, S2 Abdominal: Yes: Non Tender, Soft, Increased Bowel Sounds Genitourinary: Yes: Within Normal Limits (NO C/O) Back: Yes: Normal Inspection Musculoskeletal: Yes: full range of Motion, Gait Steady Extremities: Yes: Normal Capillary Refill, Normal Range of Motion, Non-Tender Neurological: Yes: Fully Oriented, Alert, Motor Strength 5/5 Integumentary: Yes: Dry (POOR SKIN TUGOR), Rash (SUPERIFICIAL SCABS NOTED TO SKIN FRO CLIENT PICKING SKIN. NO S/SX OF INFECTION), Other (FLUSHED) Lymphatic: Yes: Within Normal Limits - Diagnostic (1) Alcohol dependence with withdrawal, uncomplicated Current Visit: Yes Status: Acute (2) Cocaine dependence Current Visit: Yes Status: Acute Qualifiers: Substance use status: uncomplicated Qualified Code(s): F14.20 - Cocaine dependence, uncomplicated (3) Substance-induced sleep disorder Current Visit: Yes Status: Suspected (4) Asthma Current Visit: Yes Status: Chronic Qualifiers: Asthma severity: unspecified severity Asthma persistence: unspecified Asthma complication type: unspecified Qualified Code(s): J45.909 - Unspecified asthma, uncomplicated (5) Nicotine dependence Current Visit: Yes Status: Chronic Qualifiers: Nicotine product type: cigarettes (6) Substance-induced anxiety disorder Current Visit: Yes Status: Suspected (7) At risk for dehydration due to poor fluid intake Current Visit: Yes Status: Acute (8) Skin turgor poor Current Visit: Yes Status: Acute (9) Alcohol-induced anxiety disorder Current Visit: Yes Status: Suspected Cleared for Admission S - Detox or Rehab [facility] Level of Care: Medically Managed Detox Regimen/Protocol: Librium Claeared for Rehab Admission: No Inpatient Rehab Admission - Rehab Decision to Admit Inpatient rehab admission?: No
[2019-09-15] MEDS ORDERED: chlordiazePOXIDE HCL 10 MG CAPSULE PO PRN (20:28)
[2019-09-15] MEDS ORDERED: IBUPROFEN 400 MG TABLET (FP) PO PRN (20:28)
[2019-09-15] MEDS ORDERED: P-EPHED 60MG/TRIPROLIDI 2.5MG TABLET PO PRN (20:28)
[2019-09-15] MEDS ORDERED: guaiFENesin 200 MG/10 ML 10 ML UNIT-DOSE CUPS PO PRN (20:28)
[2019-09-15] MEDS ORDERED: NICOTINE POLACRILEX 2 MG GUM BUC PRN (20:28)
[2019-09-15] MEDS ORDERED: BISMUTH SUBSALICYLATE 524 MG/30 ML UD PO PRN (20:28)
[2019-09-15] MEDS ORDERED: METHOCARBAMOL 500 MG TABLET PO PRN (20:28)
[2019-09-15] MEDS ORDERED: DICYCLOMINE HCL 10 MG CAPSULE PO PRN (20:28)
[2019-09-15] MEDS ORDERED: ACETAMINOPHEN 325 MG TABLET (FP) PO PRN ×2 (20:28)
[2019-09-15] MEDS ORDERED: MENTHOL/PHENOL 1 EACH UD MM PRN (20:28)
[2019-09-15] MEDS ORDERED: hydrOXYzine PAMOATE 25 MG CAPSULE (FP) PO PRN (20:28)
[2019-09-15] MEDS ORDERED: MELATONIN 5 MG TABLETS PO PRN (20:28)
[2019-09-15] MEDS ORDERED: MAGNESIUM HYDROX 2400MG/30ML ORAL SUSPENSION 30 ML CUP PO PRN (20:28)
[2019-09-15] MEDS ORDERED: MAG HYDROX/AL HYDROX/SIMETH 30 ML UNIT-DOSE CUP PO PRN (20:28)
[2019-09-15] MEDS ORDERED: MAGNESIUM CITRATE 300 ML BOTTLE PO PRN (20:28)
[2019-09-15] MEDS ORDERED: ONDANSETRON *ODT* 4 MG TABLET SL PRN (20:28)
[2019-09-15 21:37] VITALS: BMI 24.0
[2019-09-15] MEDS ORDERED: THIAMINE HCL 100 MG TABLET (FP) PO SCH (22:00)
[2019-09-15] MEDS: chlordiazePOXIDE HCL 25 MG CAPSULE PO SCH (22:56)
[2019-09-16] MEDS: chlordiazePOXIDE HCL 25 MG CAPSULE PO SCH ×2 (05:20→13:10)
[2019-09-16 09:42] VITALS: PULSE 91
[2019-09-16] MEDS ORDERED: PRENATAL VITAMINS W/ FOLIC ACID TABLET (FP) PO SCH (10:00)
[2019-09-16] MEDS ORDERED: NICOTINE 21 MG/24 HOURS TOPICAL PATCH TD SCH (10:00)
[2019-09-16 10:09] LABS: HEMATOCRIT 43.6 % (32.4-45.2); HEMOGLOBIN 14.8 GM/dL (10.7-15.3); MCH 31.2 pg (25.7-33.7); MCHC 33.9 g/dl (32.0-36.0); MEAN CELL VOLUME 92.1 fl (80-96); MEAN PLT VOLUME 9.6 fl (7.5-11.1); PLATELET COUNT 238 K/MM3 (134-434); RBC 4.74 M/mm3 (3.60-5.2); RDW 13.3 % (11.6-15.6); WHITE BLOOD COUNT 6.4 K/mm3 (4.0-10.0)
--- NOTE | 2019-09-16 10:29 | PN ---
S CIWA - CIWA Score Nausea/Vomitin-No Nausea/No Vomiting Muscle Tremors: 4-Moderate,w/Arms Extend Anxiety: 4-Mod. Anxious/Guarded Agitation: 1-Slight > Activity Paroxysmal Sweats: 2 Orientation: 0-Oriented Tacttile Disturbances: 0-None Auditory Disturbances: 0-None Visual Disturbances: 2-Mild Sensitivity Headache: 2-Mild CIWA-Ar Total Score: 15 [facility] Progress Note (SOAP) Subjective: 53 years old female admitted on 09/15/19 for alcohol withdrawal sx management treating with librium detox regiment feeling ok today ate breakfast in room tolerated food and fluid well anxious and restlessness Objective: 09/16/19 10:28 Vital Signs Temperature 98.1 F 09/16/19 08:46 Pulse Rate 91 H 09/16/19 08:46 Respiratory Rate 16 09/16/19 08:46 Blood Pressure 123/93 09/16/19 08:46 O2 Sat by Pulse Oximetry (%) Laboratory Last Values WBC 6.4 K/mm3 (4.0-10.0) 09/16/19 07:40 RBC 4.74 M/mm3 (3.60-5.2) 09/16/19 07:40 Hgb 14.8 GM/dL (10.7-15.3) 09/16/19 07:40 Hct 43.6 % (32.4-45.2) 09/16/19 07:40 MCV 92.1 fl (80-96) 09/16/19 07:40 MCH 31.2 pg (25.7-33.7) 09/16/19 07:40 MCHC 33.9 g/dl (32.0-36.0) 09/16/19 07:40 RDW 13.3 % (11.6-15.6) 09/16/19 07:40 Plt Count 238 K/MM3 (134-434) 09/16/19 07:40 MPV 9.6 fl (7.5-11.1) 09/16/19 07:40 POC Urine HCG, Qual Negative 09/15/19 20:31 lab noted Assessment: 09/16/19 10:29 alcohol withdrawal Plan: librium regiment
[2019-09-16 10:35] LABS: ALBUMIN 3.3 g/dl (3.4-5.0); BILIRUBIN,TOTAL 0.4 mg/dL (0.2-1); BLOOD UREA NITROGEN 22.3 mg/dL (7-18); CALCIUM 8.8 mg/dL (8.5-10.1); CREATININE 0.7 mg/dL (0.55-1.3); POTASSIUM 4.2 mmol/L (3.5-5.1); TOT PROT 6.2 g/dl (6.4-8.2)
--- NOTE | 2019-09-16 11:39 | CONSULT ---
[facility] Psychiatric Consult - Data Date of interview: 09/16/19 Admission source: [facility] Identifying data: Patient is a 53 year old single female, without children, unemployed, domiciled, and is supported by [facility]. This is one of multiple admissions for patient. Patient admitted to for alcohol, cocaine, and opiate dependence. Substance Abuse History: Smoking Cessation. Smoking history: Current every day smoker. Have you smoked in the past 12 months: Yes. Aproximately how many cigarettes per day: 20. Cigars Per Day: 0. Hx Chewing Tobacco Use: No. Initiated information on smoking cessation: Yes. 'Breaking Loose' booklet given : 09/15/19. - Substance & Tx. History. Hx Alcohol Use: Yes. Hx Substance Use : Yes. Substance Use Type: Alcohol, Cocaine. Hx Substance [facility]: [facility] ( [facility] - Substances abused. Alcohol. Other (specify): VODKA. Substance route: Oral. Frequency: Daily. Amount used: FIFTH. Age of first use: 13. Date of last use: 09/15/19. Cocaine. Other (specify): CRACK. Substance route: Smoking. Frequency: Daily. Amount used: $100. Age of first use: 16. Date of last use: 09/14/19 Medical History: Anemia Psychiatric History: Patient reports history of multiple psychiatric hospitalizations ([facility]) and most recently at [facility] in 2019 due to depression. She was diagnosed with bipolar disorder and prescribed abilify 30mg HS + cogentin 2mg HS. Patient has poor compliance to treatment. Patient seen by sign writer letterer or painter in [facility] but failed to attend her follow up appointments. Patient is totally lost in follow up care. States that she saves her medications and last took abilify last week. At present patient reports feeling sad. She denies auditory/visual hallucinations, suicidal/ homicidal ideation. Physical/Sexual Abuse/Trauma History: denies. Mental Status Exam - Mental Status Exam Alert and Oriented to: Time, Place, Person Cognitive Function: Good Patient Appearance: Unkempt Mood: Withdrawn Affect: Mood Congruent Patient Behavior: Cooperative Speech Pattern: Appropriate Voice Loudness: Normal Thought Process: Goal Oriented Thought Disorder: Not Present Hallucinations: Denies Suicidal Ideation: Denies Homicidal Ideation: Denies Insight/Judgement: Poor Sleep: Fair Appetite: Fair Muscle strength/Tone: Normal Gait/Station: Normal Psychiatric Findings - Problem List ([employer] 1, 2,3) (1) Alcohol dependence with withdrawal, uncomplicated Current Visit: Yes Status: Acute (2) Cocaine dependence Current Visit: Yes Status: Acute Qualifiers: Substance use status: uncomplicated Qualified Code(s): F14.20 - Cocaine dependence, uncomplicated (3) Substance-induced sleep disorder Current Visit: Yes Status: Suspected (4) Bipolar disorder Current Visit: Yes Status: Chronic - Initial Treatment Plan Initial Treatment Plan: Psychoeducation provided. Detoxification in progress. Will order Abilify 15mg daily + Cogentin 1mg daily. Benefits and side effects discussed. Verbal consent given.
--- NOTE | 2019-09-16 11:55 | EKG ---
Test Reason : Blood Pressure : / mmHG Vent. Rate : 084 BPM Atrial Rate : 084 BPM P-R Int : 108 ms QRS Dur : 084 ms QT Int : 380 ms P-R-T Axes : 051 070 049 degrees QTc Int : 449 ms SINUS RHYTHM WITH SHORT [place] OTHERWISE NORMAL ECG WHEN COMPARED WITH ECG OF 17-FEB-2018 23:47, NO SIGNIFICANT CHANGE WAS FOUND Confirmed by GRACE TOVAR MD ([id number]) on 09/16/2019 11:55:17 AM Referred By: Confirmed By:GRACE TOVAR MD
--- NOTE | 2019-09-16 13:13 | DS ---
[facility] Detox Discharge Summary Admission Date: 09/15/19 Discharge Date: 09/16/19 - History Present History: Alcohol Dependence Additional Comments: 53 years old female admitted on 09/15/19 for alcohol withdrawal sx management treating with librum detox regiment Ms Heart insists to leave the detox to home for her cats alert oriented x 3 speech clearly coherently ambulating with steady gait Pertinent Past History: time for discharge 42 minutes - Physical Exam Results Vital Signs: Vital Signs Temperature 98.1 F 09/16/19 08:46 Pulse Rate 91 H 09/16/19 08:46 Respiratory Rate 16 09/16/19 08:46 Blood Pressure 123/93 09/16/19 08:46 O2 Sat by Pulse Oximetry (%) Pertinent Admission Physical Exam Findings: alcohol withdrawal Vital Signs Temperature 97.3 F L 09/16/19 12:42 Pulse Rate 91 H 09/16/19 12:42 Respiratory Rate 18 09/16/19 12:42 Blood Pressure 133/90 09/16/19 12:42 O2 Sat by Pulse Oximetry (%) Laboratory Last Values WBC 6.4 K/mm3 (4.0-10.0) 09/16/19 07:40 RBC 4.74 M/mm3 (3.60-5.2) 09/16/19 07:40 Hgb 14.8 GM/dL (10.7-15.3) 09/16/19 07:40 Hct 43.6 % (32.4-45.2) 09/16/19 07:40 MCV 92.1 fl (80-96) 09/16/19 07:40 MCH 31.2 pg (25.7-33.7) 09/16/19 07:40 MCHC 33.9 g/dl (32.0-36.0) 09/16/19 07:40 RDW 13.3 % (11.6-15.6) 09/16/19 07:40 Plt Count 238 K/MM3 (134-434) 09/16/19 07:40 MPV 9.6 fl (7.5-11.1) 09/16/19 07:40 Sodium 140 mmol/L (136-145) 09/16/19 07:40 Potassium 4.2 mmol/L (3.5-5.1) 09/16/19 07:40 Chloride 107 mmol/L (98-107) 09/16/19 07:40 Carbon Dioxide 27 mmol/L (21-32) 09/16/19 07:40 Anion Gap 6 MMOL/L (8-16) L 09/16/19 07:40 BUN 22.3 mg/dL (7-18) H 09/16/19 07:40 Creatinine 0.7 mg/dL (0.55-1.3) 09/16/19 07:40 Est GFR (CKD-EPI)AfAm 115.45 09/16/19 07:40 Est GFR (CKD-EPI)NonAf 99.62 09/16/19 07:40 Random Glucose 100 mg/dL (74-106) 09/16/19 07:40 Calcium 8.8 mg/dL (8.5-10.1) 09/16/19 07:40 Total Bilirubin 0.4 mg/dL (0.2-1) 09/16/19 07:40 AST 12 U/L (15-37) L 09/16/19 07:40 ALT 20 U/L (13-61) 09/16/19 07:40 Alkaline Phosphatase 68 U/L (45-117) 09/16/19 07:40 Total Protein 6.2 g/dl (6.4-8.2) L 09/16/19 07:40 Albumin 3.3 g/dl (3.4-5.0) L 09/16/19 07:40 POC Urine HCG, Qual Negative 09/15/19 20:31 RPR Titer Nonreactive (NONREACTIVE) 09/16/19 07:40 HIV 1&2 Antibody Screen Negative 09/16/19 07:40 HIV P24 Antigen Negative 09/16/19 07:40 lab noted - Treatment Hospital Course: Detox Protocol Followed, Discharged Condition Good Patient has Accepted a Rehab Referral to: community support approach - Medication Discharge Medications: Ambulatory Orders Aripiprazole [Abilify -] 15 mg PO DAILY #30 tablet 09/02/18 Aripiprazole [Abilify] 30 mg PO DAILY #30 tablet 11/13/18 Benztropine Mesylate [Cogentin -] 2 mg PO DAILY #30 tablet 04/07/19 - Diagnosis (1) Alcohol dependence with withdrawal, uncomplicated Status: Acute (2) Asthma Status: Chronic Qualifiers: Asthma severity: mild Asthma persistence: intermittent Asthma complication type: with status asthmaticus Qualified Code(s): J45.22 - Mild intermittent asthma with status asthmaticus (3) Nicotine dependence Status: Acute Qualifiers: Nicotine product type: cigarettes Substance use status: in withdrawal Qualified Code(s): F17.213 - Nicotine dependence, cigarettes, with withdrawal - AMA Did Patient Leave Against Medical Advice: Yes
[2019-09-16 13:24] VITALS: BP 133/90; TEMP 97.3
[2019-09-17] MEDS ORDERED: chlordiazePOXIDE 5 MG CAPSULE PO SCH (05:00)
[2019-09-17] MEDS ORDERED: ARIPiprazole 15 MG TABLET PO SCH (10:00)
[2019-09-17] MEDS ORDERED: BENZTROPINE MESYLATE 1 MG TABLET PO SCH (10:00)
[2019-09-18] MEDS ORDERED: chlordiazePOXIDE HCL 10 MG CAPSULE PO PRN
[2019-09-18] MEDS ORDERED: chlordiazePOXIDE HCL 10 MG CAPSULE PO SCH (05:00)
[2019-09-19] MEDS ORDERED: chlordiazePOXIDE HCL 10 MG CAPSULE PO ONE (05:00)
== END 2019-09-16 13:22 | disposition left against medical advice (07) | DRG 894 ==
LOC: YASAS 20:09 → Y3N 20:57
PROVIDERS: ADMIT Allergy & Immunology; ATTEND Allergy & Immunology
PROC: HZ2ZZZZ Detoxification Services for Substance Abuse Treatment (ICD-10-PCS; principal; 2019-09-15)
DX: F10.230 Alcohol dependence with withdrawal, uncomplicated (principal); F14.20 Cocaine dependence, uncomplicated; F19.282 Other psychoactive substance dependence with psychoactive substance-induced sleep disorder; F19.280 Other psychoactive substance dependence with psychoactive substance-induced anxiety disorder; J45.22 Mild intermittent asthma with status asthmaticus; F17.210 Nicotine dependence, cigarettes, uncomplicated; F10.280 Alcohol dependence with alcohol-induced anxiety disorder; F31.9 Bipolar disorder, unspecified; R23.8 Other skin changes; Z91.89 Other specified personal risk factors, not elsewhere classified
CPT/HCPCS: 36415; 80053; 81025; 85027; 86593; 87389; 93005; 93010

== ENCOUNTER 2022-06-28 17:42 | Inpatient (IN) | payer OTHER ==
[2022-06-28 18:45] VITALS: BMI 22.8
[2022-06-28] MEDS ORDERED: guaiFENesin 200 MG/10 ML 10 ML UNIT-DOSE CUPS PO PRN (21:01)
[2022-06-28] MEDS ORDERED: IBUPROFEN 600 MG TABLET (FP) PO PRN (21:01)
[2022-06-28] MEDS ORDERED: hydrOXYzine PAMOATE 25 MG CAPSULE (FP) PO PRN (21:01)
[2022-06-28] MEDS ORDERED: BISMUTH SUBSALICYLATE 524 MG/30 ML PO PRN (21:01)
[2022-06-28] MEDS ORDERED: ACETAMINOPHEN 325 MG TABLET (FP) PO PRN ×2 (21:01)
[2022-06-28] MEDS ORDERED: MAG HYDROX/AL HYDROX/SIMETH 30 ML UNIT-DOSE CUP PO PRN (21:01)
[2022-06-28] MEDS ORDERED: NALOXONE HCL (KLOXXADO) 8 MG SPRAY NS PRN (21:01)
[2022-06-28] MEDS ORDERED: BENZOCAINE/MENTHOL (CHLORASEPTIC ) LOZENGE MM PRN (21:01)
[2022-06-28] MEDS ORDERED: POLYETHYLENE GLYCOL (HEALTHYLAX) 3350 17 GM PACKET PO PRN (21:01)
[2022-06-28] MEDS ORDERED: METHOCARBAMOL 500 MG TABLET PO PRN (21:01)
[2022-06-28] MEDS ORDERED: IBUPROFEN 400 MG TABLET (FP) PO PRN (21:01)
[2022-06-28] MEDS ORDERED: NICOTINE POLACRILEX 2 MG GUM BUC PRN (21:01)
[2022-06-28] MEDS ORDERED: LOPERAMIDE HCL 2 MG CAPSULE PO PRN (21:01)
[2022-06-28] MEDS ORDERED: DICYCLOMINE HCL 10 MG CAPSULE PO PRN (21:01)
[2022-06-28] MEDS ORDERED: MAGNESIUM HYDROX 2400MG/30ML ORAL SUSPENSION 30 ML CUP PO PRN (21:01)
[2022-06-28] MEDS ORDERED: ONDANSETRON *ODT* 4 MG TABLET SL PRN (21:01)
[2022-06-28] MEDS ORDERED: P-EPHED 60MG/TRIPROLIDI 2.5MG TABLET PO PRN (21:01)
[2022-06-28] MEDS: MELATONIN 5 MG TABLETS PO SCH (23:48)
[2022-06-28] MEDS: THIAMINE HCL 100 MG TABLET (FP) PO SCH (23:53)
[2022-06-29] MEDS: PRENATAL VITAMINS W/ FOLIC ACID TABLET (FP) PO SCH (10:50)
[2022-06-29] MEDS: NICOTINE 21 MG/24 HOURS TOPICAL PATCH TD SCH (10:50)
[2022-06-29 11:43] LABS: HEMATOCRIT 42.2 % (32.4-45.2); HEMOGLOBIN 13.8 GM/dL (10.7-15.3); MCH 30.4 pg (25.7-33.7); MCHC 32.6 g/dl (32.0-36.0); MEAN CELL VOLUME 93.3 fl (80-96); MEAN PLT VOLUME 9.8 fl (7.5-11.1); PLATELET COUNT 245 10^3/uL (134-434); RBC 4.52 M/mm3 (3.60-5.2); RDW 13.1 % (11.6-15.6); WHITE BLOOD COUNT 6.3 K/mm3 (4.0-10.0)
[2022-06-29] MEDS ORDERED: ARIPiprazole 15 MG TABLET PO ONE (11:50)
[2022-06-29] MEDS ORDERED: BENZTROPINE MESYLATE 2 MG TABLET PO ONE (11:50)
[2022-06-29 12:26] LABS: CHLORIDE 109 mmol/L (98-107); SODIUM 143 mmol/L (136-145)
[2022-06-29 12:31] LABS: GLUCOSE,RANDOM 97 mg/dL (74-106)
[2022-06-29 12:35] LABS: BILIRUBIN,TOTAL < 0.1 mg/dL (0.2-1); TOT PROT 5.4 g/dl (6.4-8.2)
[2022-06-29 12:37] LABS: ALK PHOS 53 U/L (45-117)
[2022-06-29 12:41] LABS: ANION GAP 6 MMOL/L (8-16); BLOOD UREA NITROGEN 13.9 mg/dL (7-18); CALCIUM 8.1 mg/dL (8.5-10.1); CO2 28 mmol/L (21-32); CREATININE 0.7 mg/dL (0.55-1.3); SGOT/AST 11 U/L (15-37); SGPT/ALT 18 U/L (13-61)
[2022-06-29 19:20] VITALS: RESP 18
[2022-06-30] MEDS: MELATONIN 5 MG TABLETS PO SCH (00:07)
[2022-06-30] MEDS: THIAMINE HCL 100 MG TABLET (FP) PO SCH (00:07)
[2022-06-30] MEDS: NICOTINE 21 MG/24 HOURS TOPICAL PATCH TD SCH (10:29)
[2022-06-30] MEDS: PRENATAL VITAMINS W/ FOLIC ACID TABLET (FP) PO SCH (10:29)
[2022-06-30 12:17] VITALS: BP 126/99; PULSE 80; TEMP 97.6
== END 2022-06-30 15:54 | disposition home or self-care (01) | DRG 897 ==
LOC: YASAS 17:42 → Y3N 22:17 → UNDOADMIN 22:17 → Y6N 22:23 → Y3N 22:23
PROVIDERS: ADMIT Allergy & Immunology; ATTEND Surgery
PROC: HZ2ZZZZ Detoxification Services for Substance Abuse Treatment (ICD-10-PCS; principal; 2022-06-28)
DX: F10.230 Alcohol dependence with withdrawal, uncomplicated (principal); F14.20 Cocaine dependence, uncomplicated; F17.210 Nicotine dependence, cigarettes, uncomplicated; F31.9 Bipolar disorder, unspecified; F25.9 Schizoaffective disorder, unspecified; F19.24 Other psychoactive substance dependence with psychoactive substance-induced mood disorder; J45.20 Mild intermittent asthma, uncomplicated
CPT/HCPCS: 36415; 80053; 85027; 86593; 86780; 87811; C9803-CS; U0003; U0005

== ENCOUNTER 2023-10-30 16:13 | Inpatient (IN) | payer OTHER ==
[2023-10-30 17:00] VITALS: BMI 25.0
[2023-10-30] MEDS ORDERED: BENZONATATE 200 MG CAPSULE PO PRN (19:51)
[2023-10-30] MEDS ORDERED: hydrOXYzine PAMOATE 25 MG CAPSULE (FP) PO PRN (19:51)
[2023-10-30] MEDS ORDERED: MAGNESIUM HYDROX 2400MG/30ML ORAL SUSPENSION 30 ML CUP PO PRN (19:51)
[2023-10-30] MEDS ORDERED: NALOXONE HCL 0.4 MG/ML VIAL IM PRN (19:51)
[2023-10-30] MEDS ORDERED: LOPERAMIDE HCL 2 MG CAPSULE PO PRN (19:51)
[2023-10-30] MEDS ORDERED: ONDANSETRON *ODT* 4 MG TABLET SL PRN (19:51)
[2023-10-30] MEDS ORDERED: BISMUTH SUBSALICYLATE 524 MG/30 ML PO PRN (19:51)
[2023-10-30] MEDS ORDERED: DICYCLOMINE HCL 10 MG CAPSULE PO PRN (19:51)
[2023-10-30] MEDS ORDERED: MAG HYDROX/AL HYDROX/SIMETH 30 ML UNIT-DOSE CUP PO PRN (19:51)
[2023-10-30] MEDS ORDERED: ACETAMINOPHEN 325 MG TABLET (FP) PO PRN (19:51)
[2023-10-30] MEDS ORDERED: BENZOCAINE/MENTHOL (CHLORASEPTIC ) LOZENGE MM PRN (19:51)
[2023-10-30] MEDS ORDERED: guaiFENesin 600 MG TABLET.ER (FP) PO PRN (19:51)
[2023-10-30] MEDS ORDERED: POLYETHYLENE GLYCOL (HEALTHYLAX) 3350 17 GM PACKET PO PRN (19:51)
[2023-10-30] MEDS ORDERED: IBUPROFEN 400 MG TABLET (FP) PO PRN (19:51)
[2023-10-30] MEDS ORDERED: NALOXONE HCL (KLOXXADO) 8 MG SPRAY NS PRN (19:51)
[2023-10-30] MEDS ORDERED: chlordiazePOXIDE HCL 25 MG CAPSULE PO PRN (19:51)
[2023-10-30] MEDS: chlordiazePOXIDE HCL 25 MG CAPSULE PO SCH (22:30)
[2023-10-30] MEDS: THIAMINE HCL 100 MG TABLET (FP) PO SCH (22:32)
[2023-10-30] MEDS: MELATONIN 5 MG TABLETS PO SCH (22:32)
[2023-10-31] MEDS: PRENATAL VITAMINS W/ FOLIC ACID TABLET (FP) PO SCH (10:55)
[2023-10-31 11:54] LABS: HEMATOCRIT 41.8 % (32.4-45.2); HEMOGLOBIN 13.7 GM/dL (10.7-15.3); MCH 30.8 pg (25.7-33.7); MCHC 32.8 g/dl (32.0-36.0); MEAN CELL VOLUME 93.9 fl (80-96); MEAN PLT VOLUME 9.5 fl (7.5-11.1); PLATELET COUNT 210 10^3/uL (134-434); RBC 4.46 M/mm3 (3.60-5.2); RDW 13.8 % (11.6-15.6); WHITE BLOOD COUNT 6.2 K/mm3 (4.0-10.0)
[2023-10-31 11:57] LABS: CHLORIDE 108 mmol/L (98-107); POTASSIUM 3.8 mmol/L (3.5-5.1); SODIUM 140 mmol/L (136-145)
[2023-10-31 12:12] LABS: ALBUMIN 3.2 g/dl (3.4-5.0); ANION GAP 3 mmol/L (4-13); BLOOD UREA NITROGEN 14.2 mg/dL (7-18); CALCIUM 8.6 mg/dL (8.5-10.1); CO2 28 mmol/L (21-32); GLUCOSE,RANDOM 115 mg/dL (74-106)
[2023-10-31 12:15] LABS: CREATININE 0.7 mg/dL (0.55-1.3); SGOT/AST 13 U/L (15-37); SGPT/ALT 15 U/L (13-61)
[2023-10-31 12:17] LABS: ALK PHOS 61 U/L (45-117); BILIRUBIN,TOTAL 0.1 mg/dL (0.2-1); TOT PROT 5.7 g/dl (6.4-8.2)
[2023-10-31 12:50] LABS: HIV INTERPRETATION NEGATIVE (NEGATIVE)
[2023-10-31] MEDS: TOPIRAMATE 100 MG TABLET PO SCH (22:10)
[2023-11-01] MEDS: chlordiazePOXIDE HCL 25 MG CAPSULE PO SCH (05:40)
[2023-11-01 07:27] VITALS: RESP 16
[2023-11-01] MEDS: IBUPROFEN 600 MG TABLET (FP) PO PRN (19:38)
[2023-11-01] MEDS: METHOCARBAMOL 500 MG TABLET PO PRN (22:18)
[2023-11-02] MEDS ORDERED: chlordiazePOXIDE HCL 10 MG CAPSULE PO PRN
[2023-11-02] MEDS: chlordiazePOXIDE HCL 10 MG CAPSULE PO SCH (05:22)
[2023-11-02 10:00] VITALS: BP 144/94; PULSE 69; TEMP 98.7
[2023-11-03] MEDS ORDERED: chlordiazePOXIDE HCL 10 MG CAPSULE PO SCH (05:00)
[2023-11-04] MEDS ORDERED: chlordiazePOXIDE HCL 10 MG CAPSULE PO ONE (05:00)
== END 2023-11-02 13:18 | disposition left against medical advice (07) | DRG 894 ==
LOC: YASAS 16:13 → Y6N 20:25
PROVIDERS: ADMIT Allergy & Immunology; ATTEND Surgery
PROC: HZ2ZZZZ Detoxification Services for Substance Abuse Treatment (ICD-10-PCS; principal; 2023-10-30)
DX: F10.230 Alcohol dependence with withdrawal, uncomplicated (principal); F14.20 Cocaine dependence, uncomplicated; F17.210 Nicotine dependence, cigarettes, uncomplicated; F25.0 Schizoaffective disorder, bipolar type; E78.5 Hyperlipidemia, unspecified; J45.909 Unspecified asthma, uncomplicated; Z86.19 Personal history of other infectious and parasitic diseases
CPT/HCPCS: 36415; 80053; 80307; 85027; 86593; 86780; 87389; 93005; 93010

== ENCOUNTER 2024-09-10 10:20 | Inpatient (IN) | payer OTHER ==
[2024-09-10 10:46] VITALS: BMI 20.5
[2024-09-10] MEDS ORDERED: MAGNESIUM HYDROX 2400MG/30ML ORAL SUSPENSION 30 ML CUP PO PRN (11:18)
[2024-09-10] MEDS ORDERED: MAG HYDROX/AL HYDROX/SIMETH 30 ML UNIT-DOSE CUP PO PRN (11:18)
[2024-09-10] MEDS ORDERED: BENZONATATE 200 MG CAPSULE PO PRN (11:18)
[2024-09-10] MEDS ORDERED: NICOTINE POLACRILEX 2 MG LOZENGE BC PRN (11:18)
[2024-09-10] MEDS ORDERED: IBUPROFEN 400 MG TABLET (FP) PO PRN (11:18)
[2024-09-10] MEDS ORDERED: LOPERAMIDE HCL 2 MG CAPSULE PO PRN (11:18)
[2024-09-10] MEDS ORDERED: POLYETHYLENE GLYCOL (HEALTHYLAX) 3350 17 GM PACKET PO PRN (11:18)
[2024-09-10] MEDS ORDERED: guaiFENesin 600 MG TABLET.ER (FP) PO PRN (11:18)
[2024-09-10] MEDS ORDERED: ALBUTEROL SO4 HFA INHALER IH PRN (14:54)
[2024-09-10] MEDS: THIAMINE 100 MG TABLET PO SCH (22:15)
[2024-09-11] MEDS ORDERED: ARIPiprazole 15 MG TABLET PO SCH (10:00)
[2024-09-11] MEDS: PRENATAL VITAMINS W/ FOLIC ACID TABLET (FP) PO SCH (10:41)
[2024-09-11] MEDS: BENZTROPINE MESYLATE 1 MG TABLET PO SCH (10:41)
[2024-09-11] MEDS: ARIPiprazole 15 MG TABLET PO SCH (10:49)
[2024-09-11 11:11] LABS: POTASSIUM 4.5 mmol/L (3.5-5.1)
[2024-09-11 11:16] LABS: HEMATOCRIT 37.7 % (32.4-45.2); HEMOGLOBIN 12.5 GM/dL (10.7-15.3); MCH 29.8 pg (25.7-33.7); MCHC 33.2 g/dl (32.0-36.0); MEAN CELL VOLUME 89.7 fl (80-96); MEAN PLT VOLUME 9.1 fl (7.5-11.1); PLATELET COUNT 262 10^3/uL (134-434); RDW 13.6 % (11.6-15.6); WHITE BLOOD COUNT 5.4 K/mm3 (4.0-10.0)
[2024-09-11 11:18] LABS: ALBUMIN 2.9 g/dl (3.4-5.0); BLOOD UREA NITROGEN 12.7 mg/dL (7-18); CALCIUM 8.8 mg/dL (8.5-10.1)
[2024-09-11 11:21] LABS: CREATININE 0.6 mg/dL (0.55-1.3)
[2024-09-11 11:22] LABS: BILIRUBIN,TOTAL 0.2 mg/dL (0.2-1)
[2024-09-11] MEDS: NITROFURANTOIN MONOHYD/M-CRYST 100 MG CAPSULE PO SCH (12:25)
[2024-09-11] MEDS: TOLNAFTATE 1% CREAM 15 GM TUBE TP SCH (12:26)
[2024-09-11 17:19] LABS: PH,URINE 7.5 (5.0-8.0); URINE APPEARANCE CLEAR; URINE BILIRUBIN NEGATIVE (NEGATIVE); URINE COLOR YELLOW; URINE GLUCOSE (UA) NEGATIVE (NEGATIVE); URINE KETONE NEGATIVE (NEGATIVE); URINE LEUK ESTERASE NEGATIVE (NEGATIVE); URINE NITRITE NEGATIVE (NEGATIVE); URINE PROTEIN NEGATIVE (NEGATIVE); URINE UROBILINOGEN 0.2 mg/dL (0.2-1.0)
[2024-09-11] MEDS: BENZOCAINE/MENTHOL (CHLORASEPTIC ) LOZENGE MM PRN (18:25)
[2024-09-11] MEDS: BACITRACIN 0.9 GM PACKET TP ONE (18:49)
[2024-09-11] MEDS: MICONAZOLE NITRATE 2% VAGINAL CREAM 45 GM TUBE VG SCH (21:16)
[2024-09-11] MEDS: ACETAMINOPHEN 325 MG TABLET (FP) PO PRN (21:16)
[2024-09-12] MEDS: IBUPROFEN 600 MG TABLET (FP) PO PRN (19:11)
[2024-09-15 06:54] VITALS: RESP 16
[2024-09-15] MEDS: NICOTINE POLACRILEX 2 MG GUM BUC PRN (17:31)
[2024-09-16 07:03] VITALS: BP 137/86; PULSE 84; TEMP 98.6
[2024-09-16] MEDS: NALOXONE (NARCAN) HCL 4 MG/0.1 ML SPRAY NS PRN (16:22)
== END 2024-09-16 16:40 | disposition left against medical advice (07) | DRG 894 ==
LOC: YASAS 10:20 → Y3NR 12:54 → Y5N 09-12 10:00
PROVIDERS: ADMIT Psychiatry & Neurology Pain Medicine; ATTEND Psychiatry & Neurology Pain Medicine
PROC: HZ42ZZZ Group Counseling for Substance Abuse Treatment, Cognitive-Behavioral (ICD-10-PCS; principal; 2024-09-10)
DX: F10.20 Alcohol dependence, uncomplicated (principal); F14.20 Cocaine dependence, uncomplicated; N39.0 Urinary tract infection, site not specified; F14.10 Cocaine abuse, uncomplicated; F17.210 Nicotine dependence, cigarettes, uncomplicated; F31.9 Bipolar disorder, unspecified; F25.0 Schizoaffective disorder, bipolar type; E78.5 Hyperlipidemia, unspecified; J45.909 Unspecified asthma, uncomplicated; Z86.19 Personal history of other infectious and parasitic diseases; Z86.69 Personal history of other diseases of the nervous system and sense organs
CPT/HCPCS: 36415; 80053; 80305; 80307; 81003; 85027; 86593; 86780; 87811; 93005; 93010